=== PATIENT | male | born 1980 | race Caucasian/White ===

== ENCOUNTER 2016-09-14 00:12 | Emergency (ER) | payer OTHER, SELFPAY ==
[2016-09-14] MEDS ORDERED: Ibuprofen 800 MG Tab PO ONE (00:30)
[2016-09-14] MEDS ORDERED: Amoxicillin/Clavulanate K 875-125 MG Tab PO ONE (00:31)
--- NOTE | 2016-09-14 00:34 | EDM.PDOC ---
ED HPI GENERAL MEDICAL PROBLEM - General Chief Complaint: General Stated Complaint: TOOTH ABCESS Time Seen by Provider: 09/14/16 00:15 Source of Information: Reports: Patient History Limitations: Reports: No limitations - History of Present Illness INITIAL COMMENTS - FREE TEXT/NARRATIVE: HISTORY AND PHYSICAL: History of present illness: [36-year-old male complaining of toothache left jaw with soft tissue swelling of the cheek lateral to the anterior molar. No voice changes difficulty breathing shortness of breath next deafness or headache. No fevers chills sweats or shaking chills. No chest pain or shortness of breath.] Review of systems: As per history of present illness and below otherwise all systems reviewed and negative. Past medical history: As per history of present illness and as reviewed below otherwise noncontributory. Surgical history: As per history of present illness and as reviewed below otherwise noncontributory. Social history: No reported history of drug or alcohol abuse. Family history: As per history of present illness and as reviewed below otherwise noncontributory. Physical exam: #19 with cavity. Soft tissue swelling of left cheek adjacent with no fluctuant plateau in the lateral gingival recess. Normal oropharynx no stridor or voice changes HEENT: Atraumatic, normocephalic, pupils reactive, negative for conjunctival pallor or scleral icterus, mucous membranes moist, throat clear, neck supple, nontender, trachea midline. Lungs: Clear to auscultation, breath sounds equal bilaterally, chest nontender. Heart: S1S2, regular, negative for clicks, rubs, or JVD. Abdomen: Soft, nondistended, nontender. Negative for masses or hepatosplenomegaly. Negative for costovertebral tenderness. Pelvis: Stable nontender. Genitourinary: Deferred. Rectal: Deferred. Extremities: Atraumatic, negative for cords or calf pain. Neurovascular unremarkable. Neuro: Awake, alert, oriented. . Motor and sensory unremarkable throughout. Exam nonfocal. Diagnostics: [] Therapeutics: [] Impression: [] Plan: [Signs and symptoms consistent with care he is and dental infection. No evidence of airway involvement or tongue elevation. No cervical adenopathy. Patient is well-appearing with unremarkable vital signs. He is afebrile. Supple neck no meningismus. No evidence of endocarditis. Patient requesting Augmentin he states that the only thing that ever worked for his dental infections. He is aware critical towards of close followup with dentist. Augmentin given by mouth here and prescription dispensed. No further workup or treatment indicated patient agrees with outpatient followup. Strict return precautions given] Definitive disposition and diagnosis as appropriate pending reevaluation and review of above. Tooth/Teeth Pain Score (Numeric/FACES): 8 - Related Data Allergies Allergy/AdvReac Type Severity Reaction Status Date / Time No Known Allergies Allergy Verified 09/14/16 00:22 Home Meds: Home Meds Amoxicillin/Clavulanate K [Augmentin 875 MG/125 MG] 1 tab PO Q12HR #20 tablet [Rx] Past Medical History - Past Health History Medical/Surgical History: Denies Medical/Surgical History Cardiovascular History: Reports: None Respiratory History: Reports: None Gastrointestinal History: Reports: None Genitourinary History: Reports: None Musculoskeletal History: Reports: None Neurological History: Reports: None Psychiatric History: Reports: None Endocrine/Metabolic History: Reports: None Hematologic History: Reports: None Immunologic History: Reports: None Oncologic (Cancer) History: Reports: None Dermatologic History: Reports: None - Infectious Disease History Infectious Disease History: Reports: None - Past Surgical History Head Surgeries/Procedures: Reports: None HEENT Surgical History: Reports: Tonsillectomy Social & Family History - Family History Family Medical History: Noncontributory - Tobacco Use Smoking Status *Q: Current Every Day Smoker Years of Tobacco use: 22 Packs/Tins Daily: 0.5 - Caffeine Use Caffeine Use: Reports: Coffee, Soda - Recreational Drug Use Recreational Drug Use: No ED ROS GENERAL - Review of Systems Review Of Systems: See Below (History of present illness) ED EXAM, GENERAL - Physical Exam Exam: See Below (History of present illness) Course - Vital Signs Last Recorded V/S: Last Vital Signs Temp 37.1 C 09/14/16 01:00 Pulse 81 09/14/16 01:00 Resp 16 09/14/16 01:00 BP 160/83 H 09/14/16 01:00 Pulse Ox 98 09/14/16 01:00 - Orders/Labs/Meds Meds: Medications Discontinued Medications Generic Name Dose Route Start Last Admin Trade Name Freq PRN Reason Stop Dose Admin Amoxicillin/Clavulanate Potassium 1 tab 09/14/16 00:31 09/14/16 00:40 Augmentin 875 Mg/125 Mg PO 09/14/16 00:32 1 tab ONETIME ONE Administration Ibuprofen 800 mg 09/14/16 00:30 09/14/16 00:40 Motrin PO 09/14/16 00:31 800 mg ONETIME ONE Administration Departure - Departure Time of Disposition: 00:32 Disposition: Home, Self-Care 01 Condition: good Clinical Impression: Toothache, Caries, Dental infection Prescriptions: Amoxicillin/Clavulanate K [Augmentin 875 MG/125 MG] 1 tab PO Q12HR #20 tablet Instructions: Dental Caries, [id number] Referrals: PCP,None [Primary Care Provider] - Forms: ED Department Discharge Additional Instructions: You have a cavity of the most frontal molar in your left jaw. Finish Augmentin as prescribed. Take ibuprofen 800 mg every 6 hours as needed for pain. Followup with your dentist in 2 days. Return for fevers or signs of worsening infection.
[2016-09-14 01:02] VITALS: BP 160/83
== END 2016-09-14 01:00 | disposition home or self-care (01) ==
LOC: MW.ED 00:12
DX: K02.9 Dental caries, unspecified (principal); F17.210 Nicotine dependence, cigarettes, uncomplicated; Z98.890 Other specified postprocedural states
CPT/HCPCS: 99282; A9270; 99283